=== PATIENT | male | born 1970 | race Caucasian/White ===

== ENCOUNTER 2018-01-22 11:08 | Emergency (ER) | payer OTHER ==
[~2018-01-22] VITALS: Ht 152.4 cm; Wt 86.2 kg
[2018-01-22] MEDS ORDERED: AMBIEN10 MG PO (11:53)
[2018-01-22] MEDS ORDERED: ATIVAN0.5 M1 PO (11:53)
[2018-01-22] MEDS ORDERED: WELLBUTRIN XL150 M1 PO (11:53)
[2018-01-22] MEDS ORDERED: NEURONTIN600 MG PO (11:53)
== END 2018-01-22 19:47 | disposition home or self-care (01) ==
LOC: ER 11:08
DX: K62.89 Other specified diseases of anus and rectum (principal)

== ENCOUNTER 2018-05-25 05:57 | Day surgery (SDC) | payer OTHER ==
[~2018-05-25 05:57] MED LIST: AMBIEN10 MG PO; ATIVAN0.5 M1 PO; NEURONTIN600 MG PO; WELLBUTRIN XL150 M1 PO
[2018-05-25] MEDS ORDERED: COLACE100 MG PO (08:05)
[2018-05-25] MEDS ORDERED: PERCOCET 5-3251 EACH PO (08:05)
== END 2018-05-25 14:00 | disposition home or self-care (01) ==
LOC: CIR.AMB 05:57
DX: K60.1 Chronic anal fissure (principal)